=== PATIENT | male | born 1970 | race American Indian/Alaskan Native ===

== ENCOUNTER 2019-06-08 11:25 | Observation (INO) | payer BC, OTHER ==
[2019-06-07 12:01] LABS: Basophils # (Auto) 0.1 K/mm3 (0.0-0.1); Basophils % (Auto) 0.9 % (0.0-1.8); Eosinophils # (Auto) 0.2 K/mm3 (0.0-0.4); Eosinophils % (Auto) 3.3 % (0.0-4.3); Hematocrit 43.1 % (35.5-45.6); Hemoglobin 14.1 gm/dl (11.8-15.2); Lymphocytes # (Auto) 2.1 K/mm3 (1.2-5.4); Lymphocytes % (Auto) 28.8 % (13.4-35.0); Mean Corpuscular HGB Conc 33 % (32-34); Mean Corpuscular Volume 80 fl (84-94); Monocytes # (Auto) 0.7 K/mm3 (0.0-0.8); Monocytes % (Auto) 9.3 % (0.0-7.3); Platelet Count 229 K/mm3 (140-440); Red Blood Count 5.37 M/mm3 (3.65-5.03); Red Cell Distribution Width 15.9 % (13.2-15.2)
--- NOTE | 2019-06-07 12:11 | Anesthesia Consultation ---
Anesthesia Consult and Med Hx Date of service: 06/08/19 - Airway Anesthetic Teeth Evaluation: Chipped ROM Head & Neck: Adequate Mental/Hyoid Distance: Adequate Mallampati Class: Class II Intubation Access Assessment: Probably Good - Pre-Operative Health Status ASA Pre-Surgery Classification: ASA3 Proposed Anesthetic Plan: General - Pulmonary Hx Smoking: Yes (/ PPD X 30 YRS) Hx Sleep Apnea: Yes (DX SLEEP APNEA WITH CPAP USE.) - Cardiovascular System Hx Hypertension: Yes (X 12 YRS. States he can climb two flights of stairs) - Central Nervous System Hx Neuromuscular Disorder: Yes (LUE neuropathy) - Endocrine Hx Non-Insulin Dependent Diabetes: Yes - Other Systems Hx Cancer: No
[2019-06-07 12:20] LABS: Alanine Aminotransferase 21 units/L (7-56); Albumin 4.2 g/dL (3.9-5); BUN/Creatinine Ratio 10; Blood Urea Nitrogen 10 mg/dL (9-20); Calcium 9.3 mg/dL (8.4-10.2); Hemolysis Index 14
[2019-06-08] MEDS ORDERED: VANCOMYCIN/NS 1 GM/250 ML 1 GM/250 ML BAG IV NR (11:47)
--- NOTE | 2019-06-08 11:48 | Anesthesia Day of Surgery ---
Anesthesia Day of Surgery - Day of Surgery Patient Examined: Yes Patient H&P Reviewed: Yes Patient is NPO: Yes
[2019-06-08] MEDS ORDERED: ONDANSETRON 4 MG/2 ML INJ IV PRN ×2 (11:49→15:19)
[2019-06-08] MEDS ORDERED: HYDROmorphone 1 MG/1 ML INJ IV PRN (11:49)
[2019-06-08] MEDS ORDERED: MAGNESIUM OXIDE 400 MG TAB PO SCH (11:50)
[2019-06-08] MEDS ORDERED: ACETAMINOPHEN 500 MG TAB PO SCH (11:50)
[2019-06-08] MEDS ORDERED: LACTATED RINGERS 1,000 ML IV SCH (12:00)
[2019-06-08] MEDS ORDERED: GABAPENTIN 300 MG CAP PO NR (12:00)
[2019-06-08] MEDS ORDERED: SODIUM CHLORIDE P/F VIAL 10 ML 20 ML ONE (12:17)
[2019-06-08] MEDS ORDERED: BUPIVACAINE/PF (0.5%) 5 MG/1 ML 30 ML VIAL INFILTRATI ONE (12:17)
[2019-06-08] MEDS ORDERED: SODIUM CHLORIDE 0.9% 500 ML 0 ML ONE (12:17)
[2019-06-08] MEDS ORDERED: NEOMY 40 MG/POLYMYXIN B 200,000 UNITS/ML (GU) AMPULE IR ONE ×2 (12:17→13:42)
[2019-06-08] MEDS ORDERED: GENTAMICIN 160 MG in SODIUM CHLORIDE 0.9% 100 ML IV ONE (12:56)
[2019-06-08] MEDS ORDERED: LIDOCAINE MPF (2%) 20 MG/1 ML VIAL 5 ML ONE (13:41)
[2019-06-08] MEDS ORDERED: SODIUM CHLORIDE 0.9% IRR 1,000 ML BOTTLE IR ONE (13:42)
[2019-06-08] MEDS ORDERED: SODIUM CHLORIDE 0.9% P/F 10 ML VIAL IV ONE (13:42)
[2019-06-08] MEDS ORDERED: BUPIVACAINE/PF (0.5%) 5 MG/1 ML 10 ML VIAL INFILTRATI ONE (13:42)
[2019-06-08] MEDS ORDERED: fentaNYL 100 MCG/2 ML INJ ONE (13:43)
[2019-06-08] MEDS ORDERED: PROPOFOL 200 MG/20 ML VIAL IV ONE (13:44)
[2019-06-08] MEDS ORDERED: HYDROmorphone 1 MG/1 ML INJ ONE (14:29)
--- NOTE | 2019-06-08 15:18 | Short Stay Summary ---
Short Stay Documentation Date of service: 06/08/19 - History H&P: obtained from office - Allergies and Medications Current Medications: Allergies No Known Allergies Allergy (Verified 06/06/19 11:07) Home Medications Medication Instructions Recorded Confirmed Last Taken Type Bc Powder 1 dose PO PRN PRN 06/06/19 06/04/19 08:00 History Cholecalciferol (Vitamin D3) 50,000 unit PO QWEEK 06/06/19 06/08/19 06/07/19 08:00 History [Vitamin D3 50,000UNIT CAP] Gabapentin [Neurontin] 600 mg PO DAILY 06/06/19 06/08/19 06/08/19 08:00 History Gemfibrozil [Lopid] 600 mg PO DAILY 06/06/19 06/08/19 06/08/19 08:00 History Glimepiride [Amaryl] 2 mg PO DAILY 06/06/19 06/08/19 06/08/19 08:00 History Lisinopril/Hydrochlorothiazide 1 each PO DAILY 06/06/19 06/08/19 06/08/19 08:00 History [Zestoretic 10-12.5 mg Tablet] Loratadine [Allergy Relief] 10 mg PO DAILY 06/06/19 06/08/19 06/08/19 08:00 History Metformin HCl [metFORMIN] 1,000 mg PO DAILY 06/06/19 06/08/19 06/08/19 08:00 History Naproxen Sodium [Aleve] 220 mg PO DAILY 06/06/19 06/08/19 06/04/19 08:00 History Sulfamethoxazole/Trimethoprim 1 each PO BID 06/06/19 06/08/19 06/08/19 08:00 History [Sulfamethoxazole-Tmp Ds Tablet] Active Medications Acetaminophen (Tylenol) 1,000 mg PO ONCE KERRY Stop: 06/08/19 23:00 Last Admin: 06/08/19 12:35 Dose: 1,000 mg Documented by: Gabapentin (Gabapentin) 600 mg PO PREOP NR Stop: 06/08/19 23:00 Last Admin: 06/08/19 12:35 Dose: 300 mg Documented by: Hydromorphone HCl (Dilaudid) 0.5 mg IV Q10MIN PRN PRN Reason: Pain , Severe (7-10) Stop: 06/08/19 23:00 Vancomycin HCl (Vancomycin/Ns 1 Gm/250 Ml) 1 gm in 250 mls @ 166.667 mls/hr IV PREOP NR; Protocol Stop: 06/08/19 23:00 Last Admin: 06/08/19 12:55 Dose: 166.667 mls/hr Documented by: Lactated Ringer's (Lactated Ringers) 1,000 mls @ 125 mls/hr IV DIRECT KERRY Last Admin: 06/08/19 12:30 Dose: 125 mls/hr Documented by: Magnesium Oxide (Mag-Ox) 400 mg PO ONCE KERRY Stop: 06/08/19 23:00 Last Admin: 06/08/19 12:35 Dose: 400 mg Documented by: Ondansetron HCl (Zofran) 4 mg IV ONCE PRN PRN Reason: Nausea And Vomiting - Brief post op/procedure progress note Date of procedure: 06/08/19 Pre-op diagnosis: ed Post-op diagnosis: other (redundant scrotal skin) Surgeon: LEONIDES BECKFORD Estimated blood loss: 50-100ml Pathology: list (scrotal skin) Specimen disposition: to lab Condition: stable - Hospital course Hospital course: pt has bactrim,dilaudid, post op info - Disposition Condition at discharge: Stable Disposition: DC-01 TO HOME OR SELFCARE Short Stay Discharge Plan Follow up with: ARELY DAVEY DO [Primary Care Provider] - 7 Days
[2019-06-08] MEDS ORDERED: ZOLPIDEM 5 MG TAB PO PRN (15:19)
[2019-06-08] MEDS ORDERED: ACETAMINOPHEN 325 MG TAB PO PRN (15:19)
[2019-06-08] MEDS ORDERED: NALOXONE 0.4 MG/1 ML INJ IV PRN (15:19)
[2019-06-08] MEDS ORDERED: LACTATED RINGERS 1,000 ML ONE (15:23)
[2019-06-08] MEDS ORDERED: HYDROmorphone 2 MG TAB PO PRN (15:25)
[2019-06-08] MEDS ORDERED: DEXTROSE 50% IN WATER (25GM) 50 ML SYRINGE IV PRN (15:26)
[2019-06-08] MEDS ORDERED: DEXTROSE 50% IN WATER (25GM) 50 ML SYRINGE IV ONE (15:49)
[2019-06-08] MEDS ORDERED: SODIUM CHLORIDE 0.45% 1000 ML 1,000 ML IV SCH (17:00)
[2019-06-08] MEDS: INSULIN REGULAR, HUMAN 100 UNITS/1 ML SUB-Q SCH ×2 (18:05→22:11)
--- NOTE | 2019-06-08 18:20 | Operative Report ---
PREOPERATIVE DIAGNOSIS: Erectile dysfunction. POSTOPERATIVE DIAGNOSES: Erectile dysfunction, redundant scrotal skin. PROCEDURE: Insertion of inflatable penile prosthesis (AMS-LGX 24 cm, +3 cm rear tip solar sales consultant), scrotoplasty, and intracorporeal injection of pharmacologic agent. SURGEON: Herbie Coronel MD STOP ATTACHER: Marianne Rosa. ANESTHESIA: General. ESTIMATED BLOOD LOSS: Minimal. FLUIDS: Crystalloid. COMPLICATIONS: No complications. 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 He has tried medications and progressed to a vacuum erection device. We discussed options with the patient and his . They agreed to proceed with the surgical intervention. Risks, benefits, and complications were explained. They reviewed the surgical video. DESCRIPTION OF PROCEDURE: The patient was taken to the operative suite and placed in a supine position. After adequate general anesthesia, he was prepped and draped in a sterile fashion. Clark catheter was placed on the operative field. Marianne Rosa was present throughout the case at the bedside to assist with surgical dissection. Clark catheter was placed. Metal Nulato retractor was used. 0.25% Marcaine was injected into the penile shaft to aid with the postoperative pain. No significant curvature. He did have some mild curvature to the left. No obvious plaque could be appreciated. Transscrotal incision was made with a Bovie. Sharp dissection was taken down to the corporal bodies. Stays were placed on the retractor. The 2-0 Vicryl stay sutures were placed into the corporal bodies. Corporotomies were made bilaterally. Gentle dilation of the corporal bodies were performed. Total measurement was 27 cm and therefore a 24 cm AMS-LGX device was prepped as well as 3 cm rear tip extenders. Copious irrigation was performed throughout the procedure. Adequate hemostasis was achieved. A 100 mL reservoir was placed in the retropubic space via the right external ring and 100 mL of saline was placed. With the aid of a Santos needle, the cylinders were placed in the corporal bodies without difficulty. Adequate seating could be appreciated. A running 2-0 Vicryl stitch was placed bilaterally. Testing of the cylinders revealed an excellent response. They held approximately 80 mL of saline. They were connected to the quick click connection system. A total of 150 mL of saline was left in the system, 100 mL in the reservoir, and 50 in these cylinders. Insufflation was performed again and adequate cosmetic appearance could be appreciated. The pump was placed in the dependent portion of the scrotum. Pursestring suture using 2-0 Vicryl was used to secure dependently and 2-0 Vicryl was used as a running stitch to secure the dartos layer. Redundant scrotal skin was excised. A 3-0 Vicryl was used to close the skin in an interrupted fashion, Xeroform gauze followed by mummy wrap. The patient tolerated the procedure well and was extubated and taken to the recovery room in a stable condition. JOB# [id number] ROBBIE/JIN
[2019-06-08] MEDS: HYDROmorphone 2 MG/1 ML INJ IV PRN ×2 (19:22→23:08)
--- NOTE | 2019-06-08 19:42 | Post Anesthesia Evaluation ---
- Post Anesthesia Evaluation Patient Participated: Yes Airway Patent: Yes Stable Respiratory Function: Yes Nausea/Vomiting: No Temp > 96.8F: Yes Pain Manageable: Yes Adequeate Hydration: Yes Anesthesia Complications: No
[2019-06-08] MEDS: ceFAZolin/NS 1 GM/50 ML 1 GM/50 ML BAG IV SCH (22:10)
[2019-06-09] MEDS: HYDROmorphone 2 MG/1 ML INJ IV PRN ×2 (04:01→09:21)
--- NOTE | 2019-06-09 04:44 | Consultation ---
History of Present Illness - Reason for Consult Consult date: 06/08/19 Medical management Requesting physician: LEONIDES BECKFORD - History of Present Illness S/p IPP.Postop doing well.No complications.Family at bedside. Past History Past Medical History: diabetes, hypertension, hyperlipidemia, other (Sleep Apnea,Vit D deficiency) Past Surgical History: Other (IPP) Social history: , lives with family, full code Family history: hypertension Medications and Allergies Allergies Allergy/AdvReac Type Severity Reaction Status Date / Time No Known Allergies Allergy Verified 06/06/19 11:07 Home Medications Medication Instructions Recorded Confirmed Last Taken Type Bc Powder 1 dose PO PRN PRN 06/06/19 06/04/19 08:00 History Cholecalciferol (Vitamin D3) 50,000 unit PO QWEEK 06/06/19 06/08/19 06/07/19 08:00 History [Vitamin D3 50,000UNIT CAP] Gabapentin [Neurontin] 600 mg PO DAILY 06/06/19 06/08/19 06/08/19 08:00 History Gemfibrozil [Lopid] 600 mg PO DAILY 06/06/19 06/08/19 06/08/19 08:00 History Glimepiride [Amaryl] 2 mg PO DAILY 06/06/19 06/08/19 06/08/19 08:00 History Lisinopril/Hydrochlorothiazide 1 each PO DAILY 06/06/19 06/08/19 06/08/19 08:00 History [Zestoretic 10-12.5 mg Tablet] Loratadine [Allergy Relief] 10 mg PO DAILY 06/06/19 06/08/19 06/08/19 08:00 History Metformin HCl [metFORMIN] 1,000 mg PO DAILY 06/06/19 06/08/19 06/08/19 08:00 History Naproxen Sodium [Aleve] 220 mg PO DAILY 06/06/19 06/08/19 06/04/19 08:00 History Sulfamethoxazole/Trimethoprim 1 each PO BID 06/06/19 06/08/19 06/08/19 08:00 History [Sulfamethoxazole-Tmp Ds Tablet] Active Meds: Active Medications Acetaminophen (Tylenol) 650 mg PO Q4H PRN PRN Reason: Pain MILD(1-3)/Fever >100.5/TEJEDA Cetirizine HCl (Cetirizine) 10 mg PO DAILY [facility] Dextrose (D50w (25gm) Syringe) 50 ml IV Q30MIN PRN; Protocol PRN Reason: Hypoglycemia Ergocalciferol (Vitamin D2) 50,000 unit PO Tu [facility] Gabapentin (Gabapentin) 600 mg PO QDAY [facility] Gemfibrozil (Lopid) 600 mg PO DAILY [facility] Glimepiride (Amaryl) 2 mg PO DAILY [facility] Hydrochlorothiazide (Hctz) 12.5 mg PO QDAY [facility] Hydromorphone HCl (Dilaudid) 2 mg IV Q3H PRN PRN Reason: Pain , Severe (7-10) Last Admin: 06/09/19 04:01 Dose: 2 mg Documented by: Hydromorphone HCl (Dilaudid) 2 mg PO Q4H PRN PRN Reason: Pain , Severe (7-10) Lactated Ringer's (Lactated Ringers) 1,000 mls @ 125 mls/hr IV DIRECT KERRY Last Admin: 06/08/19 12:30 Dose: 125 mls/hr Documented by: Sodium Chloride (Nacl 0.45% 1000 Ml) 1,000 mls @ 125 mls/hr IV DIRECT KERRY Last Admin: 06/08/19 22:10 Dose: 125 mls/hr Documented by: Cefazolin Sodium (Ancef/Ns 1 Gm/50 Ml) 1 gm in 50 mls @ 100 mls/hr IV Q8H [facility]; Protocol Last Admin: 06/08/19 22:10 Dose: 100 mls/hr Documented by: Insulin Human Regular (Humulin R) 0 units SUB-Q ACHS [facility]; Protocol Last Admin: 06/08/19 22:11 Dose: Not Given Documented by: Lisinopril (Zestril) 10 mg PO QDAY [facility] Metformin HCl (Glucophage) 1,000 mg PO QDAY [facility] Naloxone HCl (Naloxone) 0.1 mg IV Q2MIN PRN PRN Reason: Res Rate </= 8 or 02 SAT < 92% Ondansetron HCl (Zofran) 4 mg IV ONCE PRN PRN Reason: Nausea And Vomiting Ondansetron HCl (Zofran) 4 mg IV Q8H PRN PRN Reason: Nausea And Vomiting Sodium Chloride (Sodium Chloride Flush Syringe 10 Ml) 10 ml IV BID [facility] Last Admin: 06/08/19 22:11 Dose: 10 ml Documented by: Sodium Chloride (Sodium Chloride Flush Syringe 10 Ml) 10 ml IV PRN PRN PRN Reason: LINE FLUSH Zolpidem Tartrate (Ambien) 5 mg PO QHS PRN PRN Reason: Insomnia Review of Systems All systems: negative Exam - Constitutional Vitals: Temp Pulse Resp BP Pulse Ox 98.1 F 96 H 20 123/68 98 06/09/19 03:53 06/09/19 03:53 06/09/19 04:01 06/09/19 03:53 06/09/19 03:53 General appearance: Present: no acute distress, well-nourished - EENT Eyes: Present: PERRL ENT: hearing intact, clear oral mucosa - Neck Neck: Present: supple, normal ROM - Respiratory Respiratory effort: normal Respiratory: bilateral: CTA - Cardiovascular Heart rate: 76 Rhythm: regular Heart Sounds: Present: S1 & S2. Absent: rub, click - Extremities Extremities: no ischemia, pulses intact, pulses symmetrical, No edema Peripheral Pulses: within normal limits - Abdominal General gastrointestinal: Present: soft, non-tender, non-distended, normal bowel sounds Male genitourinary: Present: normal - Rectal Rectal Exam: deferred - Integumentary Integumentary: Present: clear, warm, dry - Musculoskeletal Musculoskeletal: gait normal, strength equal bilaterally - Psychiatric Psychiatric: appropriate mood/affect, intact judgment & insight - Neurologic Neurologic: CNII-XII intact, moves all extremities - Allied Health Allied health notes reviewed: nursing, case management Results - Labs CBC & Chem 7: 06/07/19 11:30 06/07/19 11:30 Labs: Abnormal lab results 06/08/19 06/08/19 06/08/19 Range/Units 12:29 16:35 21:24 POC Glucose 124 H 111 H 191 H (70-105) Assessment and Plan - Patient Problems (1) Status post surgery Current Visit: Yes Status: Acute Plan to address problem: Patient had IPP. Post op doing well. (2) HTN (hypertension) Current Visit: Yes Status: Chronic Qualifiers: Hypertension type: essential hypertension Qualified Code(s): I10 - Essential (primary) hypertension Plan to address problem: Cont anti hypertensives. (3) T2DM (type 2 diabetes mellitus) Current Visit: Yes Status: Chronic Qualifiers: Diabetes mellitus fpc insulin use: without fpc use Plan to address problem: COnt oral hypoglycemics and coverage. Check A1c. (4) HLD (hyperlipidemia) Current Visit: Yes Status: Chronic Qualifiers: Hyperlipidemia type: mixed hyperlipidemia Qualified Code(s): E78.2 - Mixed hyperlipidemia Plan to address problem: Cont Gemfibrozil (5) Vitamin D deficiency Current Visit: Yes Status: Chronic Plan to address problem: Cont Vitamin D (6) Sleep apnea Current Visit: Yes Status: Chronic Qualifiers: Sleep apnea type: obstructive Qualified Code(s): G47.33 - Obstructive sleep apnea (adult) (pediatric) Plan to address problem: Cont CPAP prn (7) DVT prophylaxis Current Visit: Yes Status: Acute Plan to address problem: On SCD's and GI prophylaxis
[2019-06-09] MEDS: ceFAZolin/NS 1 GM/50 ML 1 GM/50 ML BAG IV SCH (05:33)
[2019-06-09] MEDS ORDERED: INSULIN LISPRO 100 UNIT/ML SUB-Q SCH (07:30)
[2019-06-09] MEDS: INSULIN REGULAR, HUMAN 100 UNITS/1 ML SUB-Q SCH (09:07)
[2019-06-09] MEDS ORDERED: NON-FORMULARY EACH (Lisinopril/Hydrochlorothiazide [Zestoretic 10-12.5 Mg Tablet] 1 EACH) PO SCH (10:00)
[2019-06-09] MEDS ORDERED: NON-FORMULARY EACH (Metformin Hcl [Metformin] 1,000 MG) PO SCH (10:00)
[2019-06-09] MEDS ORDERED: LISINOPRIL 10 MG TAB PO SCH (10:00)
[2019-06-09] MEDS ORDERED: hydroCHLOROthiazide 12.5 MG CAP PO SCH (10:00)
[2019-06-09] MEDS ORDERED: NON-FORMULARY EACH (Gabapentin [Neurontin] 600 MG) PO SCH (10:00)
[2019-06-09] MEDS ORDERED: CETIRIZINE 10 MG TAB PO SCH (10:00)
[2019-06-09] MEDS ORDERED: GLIMEPIRIDE 2 MG TAB PO SCH (10:00)
[2019-06-09] MEDS ORDERED: metFORMIN 500 MG TAB PO SCH (10:00)
[2019-06-09] MEDS ORDERED: GABAPENTIN 300 MG CAP PO SCH (10:00)
[2019-06-09] MEDS ORDERED: GEMFIBROZIL 600 MG TAB PO SCH (10:00)
[2019-06-09] MEDS ORDERED: NON-FORMULARY EACH (Loratadine [Allergy Relief] 10 MG) PO SCH (10:00)
--- NOTE | 2019-06-09 11:38 | Progress Note ---
Assessment and Plan min swelling no eccymosis ipp symetrical dression removed Subjective Date of service: 06/09/19 Objective - Constitutional Vitals: Vital Signs - 12hr 06/08/19 06/09/19 06/09/19 23:47 03:53 04:01 Temperature 97.6 F 98.1 F Pulse Rate 91 H 96 H Respiratory 20 20 20 Rate Blood Pressure 124/72 123/68 O2 Sat by Pulse 92 98 Oximetry 06/09/19 06/09/19 06/09/19 04:20 08:18 09:16 Temperature 98.0 F Pulse Rate 106 H 106 H Respiratory 18 20 Rate Blood Pressure 147/79 147/79 O2 Sat by Pulse 100 Oximetry General appearance: Present: no acute distress - Neck Neck: supple - Respiratory Respiratory effort: normal Extremities: no ischemia - Gastrointestinal General gastrointestinal: Present: soft, non-tender - Genitourinary Male genitourinary: scrotal edema - Labs CBC & Chem 7: 06/07/19 11:30 06/07/19 11:30 Labs: Abnormal lab results 06/08/19 06/08/19 06/08/19 Range/Units 12:29 16:35 21:24 POC Glucose 124 H 111 H 191 H (70-105) 06/09/19 Range/Units 09:08 POC Glucose 316 H (70-105) Medications & Allergies - Medications Allergies/Adverse Reactions: Allergies No Known Allergies Allergy (Verified 06/06/19 11:07) Home Medications: Home Medications Medication Instructions Recorded Confirmed Last Taken Type Bc Powder 1 dose PO PRN PRN 06/06/19 06/09/19 06/04/19 08:00 History Cholecalciferol (Vitamin D3) 50,000 unit PO QWEEK 06/06/19 06/08/19 06/07/19 08:00 History [Vitamin D3 50,000UNIT CAP] Gabapentin [Neurontin] 600 mg PO DAILY 06/06/19 06/08/19 06/08/19 08:00 History Gemfibrozil [Lopid] 600 mg PO DAILY 06/06/19 06/08/19 06/08/19 08:00 History Glimepiride [Amaryl] 2 mg PO DAILY 06/06/19 06/08/19 06/08/19 08:00 History Lisinopril/Hydrochlorothiazide 1 each PO DAILY 06/06/19 06/08/19 06/08/19 08:00 History [Zestoretic 10-12.5 mg Tablet] Loratadine [Allergy Relief] 10 mg PO DAILY 06/06/19 06/08/19 06/08/19 08:00 History Metformin HCl [metFORMIN] 1,000 mg PO DAILY 06/06/19 06/08/19 06/08/19 08:00 History Naproxen Sodium [Aleve] 220 mg PO DAILY 06/06/19 06/08/19 06/04/19 08:00 History Sulfamethoxazole/Trimethoprim 1 each PO BID 06/06/19 06/08/19 06/08/19 08:00 History [Sulfamethoxazole-Tmp Ds Tablet] Active Medications: Generic Name Dose Route Start Last Admin Trade Name Freq PRN Reason Stop Dose Admin Acetaminophen 650 mg 06/08/19 15:19 Tylenol PO Q4H PRN Pain MILD(1-3)/Fever >100.5/TEJEDA Cetirizine HCl 10 mg 06/09/19 10:00 06/09/19 09:16 Cetirizine PO 10 mg DAILY KERRY Administration Dextrose 50 ml 06/08/19 15:26 D50w (25gm) Syringe IV Q30MIN PRN Hypoglycemia Protocol Ergocalciferol 50,000 unit 06/14/19 10:00 Vitamin D2 PO Tu [facility] Gabapentin 600 mg 06/09/19 10:00 06/09/19 09:17 Gabapentin PO 600 mg QDAY KERRY Administration Gemfibrozil 600 mg 06/09/19 10:00 Lopid PO DAILY [facility] Glimepiride 2 mg 06/09/19 10:00 Amaryl PO DAILY [facility] Hydrochlorothiazide 12.5 mg 06/09/19 10:00 06/09/19 09:16 Hctz PO 12.5 mg QDAY KERRY Administration Hydromorphone HCl 2 mg 06/08/19 15:24 06/09/19 09:21 Dilaudid IV 2 mg Q3H PRN Administration Pain , Severe (7-10) Hydromorphone HCl 2 mg 06/08/19 15:25 Dilaudid PO Q4H PRN Pain , Severe (7-10) Lactated Ringer's 1,000 mls @ 125 mls/hr 06/08/19 12:00 06/08/19 12:30 Lactated Ringers IV 125 mls/hr DIRECT KERRY Administration Sodium Chloride 1,000 mls @ 125 mls/hr 06/08/19 17:00 06/08/19 22:10 Nacl 0.45% 1000 Ml IV 125 mls/hr DIRECT KERRY Administration Cefazolin Sodium 1 gm in 50 mls @ 100 mls/hr 06/08/19 22:00 06/09/19 05:33 Ancef/Ns 1 Gm/50 Ml IV 100 mls/hr Q8H KERRY Administration Protocol Insulin Human Lispro 0 unit 06/09/19 07:30 06/09/19 09:07 Humalog SUB-Q Not Given ACHS KERRY Protocol Insulin Human Regular 0 units 06/08/19 16:30 06/09/19 09:07 Humulin R SUB-Q Not Given ACHS KERRY Protocol Lisinopril 10 mg 06/09/19 10:00 06/09/19 09:16 Zestril PO 10 mg QDAY KERRY Administration Metformin HCl 1,000 mg 06/09/19 10:00 06/09/19 09:17 Glucophage PO 1,000 mg QDAY KERRY Administration Naloxone HCl 0.1 mg 06/08/19 15:19 Naloxone IV Q2MIN PRN Res Rate </= 8 or 02 SAT < 92% Ondansetron HCl 4 mg 06/08/19 11:49 Zofran IV ONCE PRN Nausea And Vomiting Ondansetron HCl 4 mg 06/08/19 15:19 Zofran IV Q8H PRN Nausea And Vomiting Sodium Chloride 10 ml 06/08/19 22:00 06/08/19 22:11 Sodium Chloride Flush Syringe 10 Ml IV 10 ml BID KERRY Administration Sodium Chloride 10 ml 06/08/19 15:19 Sodium Chloride Flush Syringe 10 Ml IV PRN PRN LINE FLUSH Zolpidem Tartrate 5 mg 06/08/19 15:19 Ambien PO QHS PRN Insomnia
--- NOTE | 2019-06-09 11:40 | Discharge Summary ---
Short Stay Discharge Plan Activity: other (no sex no straining ) Weight Bearing Status: Full Weight Bearing Diet: low fat, low cholesterol, low salt, diabetic Wound: open to air Special Instructions: other (ice packs today ) Durable Medical Equipment Needed Upon Discharge: other (d/c chrissy ) Follow up with: ARELY DAVEY DO [Primary Care Provider] - 7 Days LEONIDES BECKFORD MD [Staff Physician] - 7 Days
[2019-06-09 12:30] VITALS: BP 132/83
[2019-06-14] MEDS ORDERED: ERGOCALCIFEROL (VIT D2) 50,000 UNIT CAP PO SCH (10:00)
[2019-06-15] MEDS ORDERED: NON-FORMULARY EACH (Cholecalciferol (Vitamin D3) [Vitamin D3 50,000unit Cap] 50,000 UNIT) PO SCH (10:00)
== END 2019-06-09 12:30 | disposition home or self-care (01) ==
LOC: OR 11:25 → 3B-SURG 15:19
PROVIDERS: ADMIT Urology; ATTEND Urology
DX: N52.9 Male erectile dysfunction, unspecified (principal)
CPT/HCPCS: 36415; 54401; 55175; 80053; 82962; 85025; 88302; 96365; 96366; 96367; 96375; 96376; C1813; G0378; J0690; J1170; J1580; J2704; J3010; J3370; J7030; J7120; 88305; J1815; J7040